=== PATIENT | male | born 1955 | race Native Hawaiian/Other Pacific Islander ===

== ENCOUNTER 2022-11-01 14:01 | Outpatient (CLI) | payer OTHER | END 2022-11-01 19:37 | disposition home or self-care (01) | LOC: RAD 14:01 | PROVIDERS: ATTEND Physician Assistant | DX: M25.511 Pain in right shoulder (principal); M25.512 Pain in left shoulder ==

== ENCOUNTER 2022-12-20 08:20 | Outpatient (CLI) | payer OTHER ==
[2022-12-20 09:18] LABS: POTASSIUM 4.5 mmol/L (3.6-5.2)
== END 2022-12-20 19:04 | disposition home or self-care (01) ==
LOC: LABW 08:20
PROVIDERS: ATTEND Specialist
DX: I12.9 Hypertensive chronic kidney disease with stage 1 through stage 4 chronic kidney disease, or unspecified chronic kidney disease (principal); N18.31 Chronic kidney disease, stage 3a; E11.65 Type 2 diabetes mellitus with hyperglycemia; J44.9 Chronic obstructive pulmonary disease, unspecified; E11.42 Type 2 diabetes mellitus with diabetic polyneuropathy
CPT/HCPCS: 36415; 80069; 82570; 82575; 84156

== ENCOUNTER 2022-12-27 07:43 | Outpatient (CLI) | payer OTHER | END 2022-12-27 19:28 | disposition home or self-care (01) | LOC: US 07:43 | PROVIDERS: ATTEND Specialist | DX: I12.9 Hypertensive chronic kidney disease with stage 1 through stage 4 chronic kidney disease, or unspecified chronic kidney disease (principal); N18.31 Chronic kidney disease, stage 3a ==